=== PATIENT | female | born 1975 | race Caucasian/White ===

== ENCOUNTER 2016-06-15 21:54 | Emergency (ER) | payer OTHER ==
[2016-06-16 00:55] LABS: SPECIFIC GRAVITY 1.015 (1.001-1.030); URINE BILIRUBIN NEGATIVE (NEGATIVE); URINE BLOOD NEGATIVE (NEGATIVE); URINE GLUCOSE (UA) NEGATIVE (NEGATIVE); URINE LEUKOCYTE ESTERASE NEGATIVE (NEGATIVE); URINE NITRITE NEGATIVE (NEGATIVE); URINE PROTEIN NEGATIVE (NEGATIVE); URINE UROBILINOGEN 1 mg/dL (0-1 mg/dl)
[2016-06-16 00:57] LABS: URINE APPEARANCE CLEAR; URINE COLOR AMBER
[2016-06-16] MEDS ORDERED: HYDROCODONE/ACETAMINOPHEN 5/325MG TABLET ONE (01:20)
[2016-06-16] MEDS ORDERED: CIPROFLOXACIN 500 MG TABLET ONE (01:20)
[2016-06-16] MEDS ORDERED: PHENAZOPYRIDINE HCL 200 MG TABLET ONE (01:20)
== END 2016-06-16 02:03 | disposition home or self-care (01) ==
LOC: ED 21:54
DX: N39.0 Urinary tract infection, site not specified (principal); I47.1 Supraventricular tachycardia; I10 Essential (primary) hypertension; F17.210 Nicotine dependence, cigarettes, uncomplicated